=== PATIENT | female | born 1935 | race Caucasian/White ===

== ENCOUNTER 2021-01-20 05:01 | Emergency (ER) | payer OTHER ==
--- OUTSIDE RECORDS SUMMARY | 2021-01-20 05:18 | XMS REPORT | Continuity of Care Document ---
:1935 Author Organization [facility] t Address [address] [place] [address] Care Team Providers Name Role Phone Francisca Adan MD. Primary Care Physician Singer CHARLES Attending Clinician Cliff Solorzano DO Attending Clinician Mariam TORRES, A Attending Clinician Unavailable Chhaya Shaikh Attending Clinician Karen WELCH Attending Clinician Steffen CHARLES Attending Clinician [place] WELCH, K.H. Attending Clinician Karen WELCH Admitting Clinician Payers Payer Name Policy Type Policy Number Effective Date Expiration Date S ource Problems Condition Condition Condition Status Onset Resolution Last Treating Co mments Source Name Details Category Date Date Treatment Clinician Date Acute Acute Disease Active [place] hyponatrem hyponatrem 7-07 Me odi ia ia 00:00: st 00 Generalize Generalize Disease Active [place] d weakness d weakness 6-14 Me thodi 00:00: st 00 UTI UTI Disease Active [place] (urinary (urinary 6-14 Method i tract tract 00:00: st infection) infection) 00 Encephalop Encephalop Disease Active H rebeccaguy athy athy 6-05 Methodi 00:00: st 00 Hypertensi Hypertensi Disease Active H rebeccaguy ve urgency ve urgency 6-05 Me thodi 00:00: st 00 CVA CVA Disease Active [place] (cerebral (cerebral 6-04 Meth cathy vascular vascular 00:00: st accident) accident) 00 Acute-on-c Acute-on-c Disease Active H kari hronic hronic 7 Methodi kidney kidney 00:00: st injury injury 00 Accelerate Accelerate Disease Active H kari d d 02-11 Methodi hypertensi hypertensi 00:00: st on on 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 7-25 Me thodi ion ion 00:00: st 00 Essential Essential Disease Active Victor M ston hypertensi hypertensi 7-25 Me thodi on on 00:00: st 00 Pulmonary Pulmonary Disease Active Victor M ston HTN HTN 7 Methodi 00:00: st 00 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, disease, 00: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 H kari a a 7-25 Methodi following following 00:00: st surgery surgery 00 Acquired Acquired Disease Active [place] hypothyroi hypothyroi 7-25 Me thodi dism dism 00:00: st 00 Anxiety Anxiety Disease Active [place] 7 Methodi 00:00: st 00 Acute Acute Disease Active [place] blood loss blood loss 7-25 Me thodi anemia anemia 00:00: st 00 Allergies, Adverse Reactions, Alerts Allergy Allergy Status Severity Reaction(s) Onset Inactive Treating Comm ents Source Name Type Date Date Clinician Adhesive Propensi Active [place] Tape-Anuradha ty to 1-11 Methodi icones adverse 00:00: st reaction 00 s to drug tetracyc DA Active [facility] [place] 00[facility] adhesive DA Active [facility] [place] 00:[facility] Family History Family Member Diagnosis Comments Start Date Stop Date Source Natural father Alzheimer's disease Karina Morrison Natural father Heart disease Chay [employer] Social History Social Habit Start Date Stop Date Quantity Comments Source Alcohol intake 2017-01-23 2017-01-23 Current Chay Doherty thodist 00:00:00 00:00:00 non-drinker of alcohol (finding) Sex Ass[birth year] Chay Espinosa ethodist 00:00:00 00:00:00 Smoking Status Start Date Stop Date Source Never smoker Chay jacinto Medications Ordered Filled Start Stop Current Ordering Indication Dosage Frequency Signature Comments Components Source Medication Medication Date Date Medication? Clinician (SIG) Name Name clonAZEPAM Yes .5mg Q.5D Take 0.5 Victor M ston (KlonoPIN) 7-13 mg by Methodi 0.5 MG 17:22: mouth 2 st tablet 46 (two) times a day as needed for seizures. rOPINIRole Yes 2mg [id number] Take 2 mg [place] (REQUIP) 4 7-13 [id number] by mouth 3 Methodi MG tablet 17:22: 3D (three) st 46 times a day as needed. As needed atorvastati Yes 10mg QD Take 10 mg [place] n (LIPITOR) 7-13 by mouth Meth cathy 10 MG 17:22: nightly. st tablet 46 liothyronin Yes 5ug QD Take 5 mcg [place] e (CYTOMEL) 7-13 by mouth Meth cathy 5 MCG 17:22: daily. st tablet 46 baclofen Yes 20mg Q.5D Take 20 mg Victor M ston (LIORESAL) 7-13 by mouth 2 Met hodi 20 MG 17:22: (two) st tablet 46 times a day. tiZANidine Yes 4mg Q.5D Take 4 mg [place] (ZANAFLEX) 7-13 by mouth 2 Met hodi 4 MG tablet 17:22: (two) st 46 times a day as needed for muscle spasms. HYDROcodone Yes 1{tbl} [id number] Take 1 [place] -acetaminop 7-13 [id number] tablet by Methodi hen (NORCO) 17:22: 3D mouth 3 st 10-325 mg 46 (three) per tablet times a day as needed (Pain). pantoprazol Yes 40mg QD Take 40 mg [place] e 7-13 by mouth Methodi (PROTONIX) 17:22: daily st 40 MG EC 46 before tablet breakfast. melatonin 3 Yes 3mg QD Take 3 mg [place] mg tablet 7-13 by mouth Method i 17:22: nightly as st 46 needed for sleep. apixaban Yes 5mg Q.5D Take 1 [place] (ELIQUIS) 5 6-09 tablet (5 Met hodi mg tablet 00:00: mg total) st 00 by mouth 2 (two) times a day. levothyroxi Yes 88ug QD Take 88 Victor M ston ne 7-18 mcg by Methodi (SYNTHROID, 00:00: mouth st LEVOTHROID) 00 every 88 MCG morning. tablet pregabalin Yes 75mg Q.5D Take 75 mg [place] (LYRICA) 7-17 by mouth 2 Metho di 100 MG 00:00: (two) st capsule 00 times a day. Procedures This patient has no known procedures. Plan of Care Planned Activity Planned Date Details Comments Source Future Scheduled 2021-02-17 INFLUENZA VACCINE [place] [facility] Test 00:00:00 [code = INFLUENZA VACCINE] Future Scheduled 2002 65+ PNEUMOCOCCAL [place] [facility] Test 00:00:00 VACCINE (1 of 1 - PPSV23) [code = 65+ PNEUMOCOCCAL VACCINE (1 of 1 - PPSV23)] Future Scheduled 1987 SHINGLES VACCINES (#1) H kari [facility] Test 00:00:00 [code = SHINGLES VACCINES (#1)] Future Scheduled 1949 COVID-19 VACCINE (1) Victor M stoshelli [employer] Test 00:00:00 [code = COVID-19 VACCINE (1)] Encounters Start End Encounter Admission Attending Care Care Encounter Source Date/Time Date/Time Type Type Clinicians Facility Department ID 2021-01-12 2021-01-12 Emergency Singer [facility] [id number] 14:10:00 18:28:00 Jeff Fernandez [id number] [place] [id number] [place] [id number] 2021-01-05 2021-01-05 Emergency [facility] [id number] 07:59:00 09:52:00 Eve Fernandez [id number] [place] [id number] [place] [id number] 2021-01-03 2021-01-03 Transition Bladimir Becerra [id number] 00:00:00 00:00:00 of Care Kuldeep Acevedoy [id number] Dimitri [id number] 2020-12-31 2021-01-02 [facility] Tanja Mcgee [facility] [id number] 14:58:00 19:28:00 Encounter Charito Jones [id number] Hunter Bourne [id number] [place] [id number] 2020-12-24 2020-12-24 Telephone [place] [facility] [id number] 00:00:00 00:00:00 Sendsumaya Fernandez [id number] [place] [id number] [place] [id number] nal 059 Building Results This patient has no known results.
[2021-01-20 05:38] LABS: Basophils % 0.7 % (0-1.3); Hematocrit 37.5 % (36.0-45.0); Lymphocytes % 28.2 % (15.3-44.8); MPV 8.3 fL (7.6-11.3); RBC Red Blood Cell Count 4.19 M/uL (3.86-4.86)
[2021-01-20 05:45] LABS: Protime INR 1.36
[2021-01-20 06:02] LABS: ALT/SGPT 24 U/L (12-78); AST/SGOT 16 U/L (15-37); Albumin 3.8 g/dL (3.4-5.0); Alkaline Phosphatase 71 U/L (45-117); BUN Blood Urea Nitrogen 33 mg/dL (7-18); Bicarbonate 32 mmol/L (21-32); Bilirubin Direct 0.2 mg/dL (0-0.2); Bilirubin Total 0.6 mg/dL (0.2-1.0); Glucose Level 114 mg/dL (74-106); Magnesium 1.8 mg/dL (1.8-2.4); NT PRO-BNP 751 pg/mL (<450); Potassium 3.4 mmol/L (3.5-5.1); Protein, Total 7.4 g/dL (6.4-8.2); Sodium Level 135 mmol/L (136-145); Troponin (Emerg Dept Use Only) < 0.02 ng/mL (0.0-0.045)
--- NOTE | 2021-01-20 07:14 | EDPHYS ---
Physician Documentation [facility] Name: Regina Subramanian Age: 85 yrs Sex: Female : 1935 Arrival Date: 01/20/2021 Time: 05:11 Bed 5 Private MD: ED Physician Cali Cerda HPI: 01/20 05:18 This 85 yrs old Female presents to ER via EMS with complaints of Chest Pain. pkl 05:18 The patient or guardian reports chest pain that is located primarily in the substernal pkl area. Onset: just prior to arrival, 1 hour(s) ago. The pain does not radiate. Associated signs and symptoms: Pertinent positives: shortness of breath. The chest pain is described as dull. The patient has experienced similar episodes in the past, a few times. Historical: - Allergies: 05:30 Codeine; lp1 05:30 TETRACYCLINES; lp1 05:30 Silicone; lp1 05:30 Adhesives; lp1 - PMHx: 05:25 CVA; Depression; Hypertension; Hypothyroidism; bs2 - Immunization history:: Adult Immunizations up to date. - Social history:: Smoking status: Patient denies any tobacco usage or history of. ROS: 05:18 Eyes: Negative for injury, pain, redness, and discharge, ENT: Negative for injury, pkl pain, and discharge, Neck: Negative for injury, pain, and swelling. 05:18 Cardiovascular: Positive for chest pain. 05:18 Respiratory: Positive for shortness of breath. 05:18 Abdomen/GI: Negative for abdominal pain, nausea, vomiting, and diarrhea. 05:18 Back: Negative for acute changes. 05:18 : Negative for urinary symptoms. 05:18 MS/extremity: Negative for acute changes. 05:18 Skin: Negative for rash. 05:18 Neuro: Negative for altered mental status, loss of consciousness. Exam: 05:18 Head/Face: Normocephalic, atraumatic. Eyes: Pupils equal round and reactive to light, pkl extra-ocular motions intact. Lids and lashes normal. Conjunctiva and sclera are non-icteric and not injected. Cornea within normal limits. Periorbital areas with no swelling, redness, or edema. ENT: Nares patent. No nasal discharge, no septal abnormalities noted. Tympanic membranes are normal and external auditory canals are clear. Oropharynx with no redness, swelling, or masses, exudates, or evidence of obstruction, uvula midline. Mucous membranes moist. Neck: Trachea midline, no thyromegaly or masses palpated, and no cervical lymphadenopathy. Supple, full range of motion without nuchal rigidity, or vertebral point tenderness. No Meningismus. Chest/axilla: Normal chest wall appearance and motion. Nontender with no deformity. No lesions are appreciated. Cardiovascular: Regular rate and rhythm with a normal S1 and S2. No gallops, murmurs, or rubs. Normal PMI, no JVD. No pulse deficits. Respiratory: Lungs have equal breath sounds bilaterally, clear to auscultation and percussion. No rales, rhonchi or wheezes noted. No increased work of breathing, no retractions or nasal flaring. Abdomen/GI: Soft, non-tender, with normal bowel sounds. No distension or tympany. No guarding or rebound. No evidence of tenderness throughout. Back: No spinal tenderness. No costovertebral tenderness. Full range of motion. Skin: Warm, dry with normal turgor. Normal color with no rashes, no lesions, and no evidence of cellulitis. MS/ Extremity: Pulses equal, no cyanosis. Neurovascular intact. Full, normal range of motion. Neuro: Awake and alert, GCS 15, oriented to person, place, time, and situation. Cranial nerves II-XII grossly intact. Motor strength 5/5 in all extremities. Sensory grossly intact. Cerebellar exam normal. Normal gait. Vital Signs: 05:13 BP 141 / 76; Pulse 80; Resp 18; Temp 98.1(O); Pulse Ox 98% on R/A; Weight 77.11 kg (R); lp1 Height 5 ft. 4 in. (162.56 cm); Pain 4/10; 08:19 BP 126 / 53; Pulse 75; Resp 14 S; Pulse Ox 97% on R/A; jd3 05:13 Body Mass Index 29.18 (77.11 kg, 162.56 cm) lp1 MDM: 05:12 Patient medically screened. pkl 07:13 Data reviewed: vital signs, nurses notes, lab test result(s), EKG, radiologic studies, pkl plain films. 01/20 05:14 Order name: Basic Metabolic Panel bs2 01/20 05:14 Order name: CBC with Diff bs2 01/20 05:14 Order name: LFT's bs2 01/20 05:14 Order name: Magnesium; Complete Time: 06:22 bs2 01/20 05:14 Order name: NT PRO-BNP; Complete Time: 06:22 bs2 01/20 05:14 Order name: PT-INR; Complete Time: 06:22 bs2 01/20 05:14 Order name: Troponin (emerg Dept Use Only); Complete Time: 06:22 bs2 01/20 05:14 Order name: XRAY Chest (1 view); Complete Time: 19:02 bs2 01/20 05:14 Order name: EKG; Complete Time: 05:15 bs2 01/20 05:15 Order name: Basic Metabolic Panel; Complete Time: 06:22 EDMS 01/20 05:15 Order name: CBC with Automated Diff; Complete Time: 07:12 EDMS 01/20 05:15 Order name: Liver (Hepatic) Function; Complete Time: 06:22 EDMS 01/20 06:26 Order name: EKG; Complete Time: 06:27 pkl 01/20 06:26 Order name: Troponin (emerg Dept Use Only); Complete Time: 19:02 pkl 01/20 05:14 Order name: Cardiac monitoring; Complete Time: 05:23 bs2 01/20 05:14 Order name: EKG - Nurse/Tech; Complete Time: 05:23 bs2 01/20 05:14 Order name: IV Saline Lock; Complete Time: 05:23 bs2 01/20 05:14 Order name: Labs collected and sent; Complete Time: 05:23 bs2 01/20 05:14 Order name: O2 Per Protocol; Complete Time: 05:23 bs2 01/20 05:14 Order name: O2 Sat Monitoring; Complete Time: 05:23 bs2 Administered Medications: No medications were administered Disposition Summary: 01/20/21 07:14 Discharge Ordered Location: Home pkl Problem: new pkl Symptoms: have improved pkl Condition: Stable pkl Diagnosis - Chest pain pkl Followup: pkl - With: Private Physician - When: 2 - 3 days - Reason: Re-evaluation by your physician Discharge Instructions: - Discharge Summary Sheet tr6 Forms: - Medication Reconciliation Form pkl - Thank You Letter pkl - Antibiotic Education pkl - Prescription Opioid Use pkl - SBAR form tr6 Signatures: Dispatcher [employer] Cali Infante MD MD pkl Cheli Prince RN RN lp1 Tameka Gant bs2
--- NOTE | 2021-01-20 07:14 | ER ---
Nurse's Notes [facility] Name: Regina Subramanian Age: 85 yrs Sex: Female : 1935 Arrival Date: 01/20/2021 Time: 05:11 Bed 5 Private MD: Diagnosis: Chest pain Presentation: 01/20 05:11 Chief complaint: EMS states: Called for patient who had sudden onset of chest pain 1 lp1 hour ago, reports she was watching TV when episode occurred; Per EMS, half-way administered total of 0.8mg of Nitro SL; EMS administered 324 ASA PO. Coronavirus screen: Client denies travel out of the [place] in the last 14 days. At this time, the client does not indicate any symptoms associated with coronavirus-19. Ebola Screen: No symptoms or risks identified at this time. Risk Assessment: Do you want to hurt yourself or someone else? Patient reports no desire to harm self or others. Onset of symptoms was January 20, 2021. 05:11 Method Of Arrival: EMS: [facility] lp1 05:11 Acuity: HUMBLE 3 lp1 05:12 Care prior to arrival: Medication(s) given: ASA, 324mg PO. lp1 05:13 Initial Sepsis Screen: Does the patient meet any 2 criteria? No. Patient's initial lp1 sepsis screen is negative. Does the patient have a suspected source of infection? No. Patient's initial sepsis screen is negative. 05:16 Note Patient is currently being treated for cellulitis. lp1 Triage Assessment: 05:24 General: Appears in no apparent distress. uncomfortable, obese, well groomed, well bs2 developed, well nourished, Behavior is calm, cooperative, appropriate for age. Pain: Complains of pain in chest, right leg, lateral aspect of left calf, left lateral ankle, lateral aspect of left foot, left calf, left Achilles, left heel, medial aspect of left calf, left medial ankle, medial aspect of left foot, left ramos, anterior aspect of left ankle and dorsum of left foot Pain currently is 6 out of 10 on a pain scale. Cardiovascular: Reports chest pain, Edema is 2+ to left midcalf, left ankle, left foot, left toes, right midcalf, right ankle, right foot and right toes. Historical: - Allergies: 05:30 Codeine; lp1 05:30 TETRACYCLINES; lp1 05:30 Silicone; lp1 05:30 Adhesives; lp1 - PMHx: 05:25 CVA; Depression; Hypertension; Hypothyroidism; bs2 - Immunization history:: Adult Immunizations up to date. - Social history:: Smoking status: Patient denies any tobacco usage or history of. Screenin:16 Abuse screen: Denies threats or abuse. Denies injuries from another. Nutritional lp1 screening: No deficits noted. Tuberculosis screening: No symptoms or risk factors identified. Fall Risk Total Kaplan Fall Scale indicates High Risk Score (45 or more points). Fall prevention measures have been instituted. Side Rails Up X 2 Frequent Obs/Assessments Occuring As available patient and family educated on Fall Prevention Program and Strategies. Assessment: 05:15 General: Appears in no apparent distress. Behavior is calm, cooperative. Pain: lp1 Complains of pain in chest Pain currently is 4 out of 10 on a pain scale. Quality of pain is described as aching. Neuro: Level of Consciousness is awake, alert, obeys commands, Oriented to person, place, situation. Cardiovascular: Patient's skin is warm and dry. Edema pitting to left midcalf, left ankle, left toes, right midcalf, right ankle and right toes greater left leg swelling. Respiratory: Respiratory effort is even, Respiratory pattern is regular, Breath sounds are clear bilaterally. GI: Abdomen is round. : No signs and/or symptoms were reported regarding the genitourinary system. EENT: No signs and/or symptoms were reported regarding the EENT system. Derm: Skin is intact, is fragile, Skin is dry, Skin is normal. 05:25 Pain: Pain does not radiate. Pain began suddenly, 1 hour ago. bs2 07:45 Reassessment: Patient appears in no apparent distress at this time. No changes from jd3 previously documented assessment. Patient and/or family updated on plan of care and expected duration. Pain level reassessed. Patient is alert, oriented x 3, equal unlabored respirations, skin warm/dry/pink. Patient states feeling better. 08:19 Reassessment: Patient appears in no apparent distress at this time. No changes from jd3 previously documented assessment. Patient and/or family updated on plan of care and expected duration. Pain level reassessed. Patient is alert, oriented x 3, equal unlabored respirations, skin warm/dry/pink. Vital Signs: 05:13 BP 141 / 76; Pulse 80; Resp 18; Temp 98.1(O); Pulse Ox 98% on R/A; Weight 77.11 kg (R); lp1 Height 5 ft. 4 in. (162.56 cm); Pain 4/10; 08:19 BP 126 / 53; Pulse 75; Resp 14 S; Pulse Ox 97% on R/A; jd3 05:13 Body Mass Index 29.18 (77.11 kg, 162.56 cm) lp1 ED Course: 05:11 Patient arrived in ED. lp1 05:12 Cali Cerda MD is Attending Physician. pkl 05:12 Triage completed. lp1 05:12 Arm band placed on left wrist. lp1 05:12 Patient maintains SpO2 saturation greater than 95% on room air. lp1 05:16 Patient has correct armband on for positive identification. Bed in low position. Call lp1 light in reach. property assessment monitor on. Pulse ox on. NIBP on. 05:19 EKG done, by ED staff, reviewed by Cali Cerda MD. tt3 05:22 Troponin (emerg Dept Use Only) Sent. bs2 05:22 PT-INR Sent. bs2 05:23 NT PRO-BNP Sent. bs2 05:23 Magnesium Sent. bs2 05:23 LFT's Sent. bs2 05:23 CBC with Diff Sent. bs2 05:23 Basic Metabolic Panel Sent. bs2 05:23 CBC with Automated Diff Sent. bs2 05:23 Basic Metabolic Panel Sent. bs2 05:23 Liver (Hepatic) Function Sent. bs2 05:45 XRAY Chest (1 view) In Process Unspecified. EDMS 07:12 Troponin (emerg Dept Use Only) Sent. oe 08:19 Cecilio Blanco, RN is Primary Nurse. jd3 08:36 No provider procedures requiring assistance completed. IV discontinued, intact, tr6 bleeding controlled, No redness/swelling at site. Pressure dressing applied. Administered Medications: No medications were administered Outcome: 07:14 Discharge ordered by . pkl 08:37 Discharged to home via ambulance. tr6 08:37 Condition: stable 08:37 Discharge instructions given to patient, Instructed on discharge instructions, no drinking with medication, safety practices, Demonstrated understanding of instructions, follow-up care, medications. 08:43 Patient left the ED. tr6 Signatures: Dispatcher [employer] EDCali Prado MD MD pkl Pena, Laura, RN RN lp1 Jose M Marie Jonathon, RN RN jd3 Darian Ely tt3 Whitney Barker RN RN tr6 Tameka Gant bs2
--- NOTE | 2021-01-20 08:35 | RAD REPORT ---
EXAM DESCRIPTION: RAD - Chest Single View - 01/20/2021 5:45 am CLINICAL HISTORY: CHEST PAIN COMPARISON: March 2017 TECHNIQUE: AP portable chest image was obtained 01/20/2021 5:45 am . FINDINGS: Lungs are clear. Interstitial pattern is slightly accentuated due to a lower lung volume. Heart and vasculature are normal. No measurable pleural effusion and no pneumothorax. No acute bony a bnormality seen. No acute aortic findings suspected. Sternotomy wires are in place. IMPRESSION: No acute cardiopulmonary process. No significant change from comparison study.
[2021-01-20 08:49] VITALS: TEMP 98.1
[2021-01-20 08:51] VITALS: BP 126/53; O2SAT 97
--- NOTE | 2021-01-21 10:32 | EKG ---
Test Date: 2021-01-20 Test Time: 07:03:25 [place] Supervisor: MONROE MEASUREMENT RESULTS: Intervals: Rate: 76 AK: 186 QRSD: 76 QT: 412 QTc: 463 [place]: P: 42 AK: 186 QRS: -8 T: 63 INTERPRETIVE STATEMENTS: Normal sinus rhythm Moderate voltage criteria for LVH, may be normal variant Borderline ECG Compared to ECG 01/20/2021 05:11:05 No significant changes Electronically Signed On 01-21-21 10:30:17 CDT by Richard Gonzalez
--- NOTE | 2021-01-21 10:32 | EKG ---
Test Date: 2021-01-20 Test Time: 05:11:05 Curriculum Development Specialist: TLT MEASUREMENT RESULTS: Intervals: Rate: 81 MO: 172 QRSD: 78 QT: 406 QTc: 471 [place]: P: 38 MO: 172 QRS: -3 T: 64 INTERPRETIVE STATEMENTS: Normal sinus rhythm Minimal voltage criteria for LVH, may be normal variant Borderline ECG Compared to ECG 04/18/2017 19:23:15 Left ventricular hypertrophy now present Electronically Signed On 01-21-21 10:30:20 CDT by Richard Gonzalez
== END 2021-01-20 08:43 | disposition home or self-care (01) ==
LOC: ER 05:01
DX: R07.9 Chest pain, unspecified (principal); I10 Essential (primary) hypertension; Z88.1 Allergy status to other antibiotic agents; Z88.5 Allergy status to narcotic agent; Z88.8 Allergy status to other drugs, medicaments and biological substances; Z91.048 Other nonmedicinal substance allergy status
CPT/HCPCS: 36415; 71045; 80048; 80076; 83735; 83880; 84484; 85025; 85610; 93005; 99285

== ENCOUNTER 2021-02-28 07:08 | Emergency (ER) | payer OTHER ==
--- OUTSIDE RECORDS SUMMARY | 2021-02-28 07:12 | XMS REPORT | Continuity of Care Document ---
:1935 Author Organization [facility] t Address [address] [place] [address] Care Team Providers Name Role Phone Francisca [...] Treatment Clinician Date Acute Acute Disease Active Methodi hyponatrem hyponatrem 01-23 ia ia 00:00: Hospita 00 l Generalize Generalize Disease Active M ethodi d weakness d weakness 12-31 00:00: Hospita 00 l UTI UTI Disease Active Methodi (urinary (urinary 6-14 st tract tract 00:00: Hospita infection) infection) 00 l Encephalop Encephalop Disease Active M ethodi athy athy 12-22 00:00: Hospita 00 l Hypertensi Hypertensi Disease Active M ethodi ve urgency ve urgency 12-22 00:00: Hospita 00 l CVA CVA Disease Active Methodi (cerebral (cerebral 12-21 vascular vascular 00:00: Hospit a accident) accident) 00 l Acute-on-c Acute-on-c Disease Active M ethodi hronic hronic 02-12 kidney kidney 00:00: Hospita injury injury 00 l Accelerate Accelerate Disease Active M ethodi d d 02-11 hypertensi hypertensi 00:00: Ho spita on on 00 l Pulmonary Pulmonary Disease Active Met hodi HTN HTN 02-10 00:00: Hospita 00 l Chronic Chronic Disease Active Methodi kidney kidney 02-10 disease, disease, 00:00: Hospit a stage II stage II 00 l (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 02-10 following following 00:00: Hosp cecelia surgery surgery 00 l Acquired Acquired Disease Active Metho di hypothyroi hypothyroi 02-10 dism dism 00:00: Hospita 00 l Anxiety Anxiety Disease Active Methodi 02-10 00:00: Hospita 00 l Acute Acute Disease Active Methodi blood loss blood loss 02-10 anemia anemia 00:00: Hospita 00 l Mitral Mitral Disease Active Methodi regurgitat regurgitat 02-10 ion ion 00:00: Hospita 00 l Essential Essential Disease Active Met hodi hypertensi hypertensi 02-10 on on 00:00: Hospita 00 l Allergies, Adverse Reactions, Alerts Allergy Allergy Status Severity Reaction(s) Onset Inactive Treating Comm ents Source Name Type Date Date Clinician Adhesive Propensi Active Method i Tape-Anuradha ty to 1-11 st icones adverse 00:00: Hospita reaction 00 l s to drug tetracyc DA Active SV [facility] line 02-23 00:00: Orthope 00 dic Hospita 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 [facility] 02-23 [place] 00:00: Orthope 00 dic Hospita l Family History Family Member Diagnosis Comments Start Date Stop Date Source Natural father Alzheimer's disease [facility] Natural father Heart disease [facility] Social History Social Habit Start Date Stop Date Quantity Comments Source Alcohol intake 2017-01-23 2017-01-23 Current [facility] 00:00:00 00:00:00 non-drinker of Hospital alcohol (finding) Sex Ass[birth year] At [birth year] [facility] 00:[facility]:00 [facility] Smoking Status Start Date Stop Date Source Never smoker [facility] Medications Ordered Filled Start Stop Current Ordering Indication Dosage Frequency Signature Comments Components Source Medication Medication Date Date Medication? Clinician (SIG) Name Name clonAZEPAM Yes .5mg Q.5D Take 0.5 Met hodi (KlonoPIN) 7-[address] 0.5 MG 22:22: mouth 2 Hospita tablet 46 (two) l times a day as needed for seizures. rOPINIRole Yes 2mg [id number] Take 2 mg Methodi (REQUIP) 4 7-13 [id number] [address] mouth [address] MG tablet 22:22: 3D (three) Hospi ta 46 times a l day as needed. As needed atorvastati Yes 10mg QD Take 10 mg Methodi n (LIPITOR) 7-[address] 10 MG 22:22: nightly. Hospita tablet 46 l liothyronin Yes 5ug QD Take 5 mcg Methodi e (CYTOMEL) 7-[address] 5 MCG 22:22: daily. Hospita tablet 46 l baclofen Yes 20mg Q.5D Take 20 mg Met hodi (LIORESAL) 7-[address] 20 MG 22:22: (two) Hospita tablet 46 times a l day. tiZANidine Yes 4mg Q.5D Take 4 mg Me thodi (ZANAFLEX) 7-[address] 4 MG tablet 22:22: (two) Hospi ta 46 times a l day as needed for muscle spasms. HYDROcodone Yes 1{tbl} [id number] Take 1 Methodi -acetaminop 7-[id number] hen (NORCO) 22:22: 3D mouth 3 Hos mindy 10-325 mg 46 (three) l per tablet times a day as needed (Pain). pantoprazol Yes 40mg QD Take 40 mg Methodi e 7-[address] (PROTONIX) 22:22: daily Hospit a 40 MG EC 46 before l tablet breakfast. melatonin 3 Yes 3mg QD Take 3 mg M ethodi mg tablet 7-[address] 22:22: nightly as Hospita 46 needed for l sleep. apixaban Yes 5mg Q.5D Take 1 Methodi (ELIQUIS) 5 6-09 tablet (5 st mg tablet 00:00: mg total) Hos mindy 00 by mouth 2 l (two) times a day. levothyroxi Yes 88ug QD Take 88 Met hodi ne 7-[address] (SYNTHROID, 00:00: mouth Hospi ta LEVOTHROID) 00 every l 88 MCG morning. tablet pregabalin Yes 75mg Q.5D Take 75 mg M ethodi (LYRICA) 7-[address] 100 MG 00:00: (two) Hospita capsule 00 times a l day. Procedures This patient has no known procedures. Plan of Care Planned Activity Planned Date Details Comments Source Future Scheduled Test COVID-19 VACCINE (1) [facility] [code = COVID-19 VACCINE (1)] Future Scheduled Test SHINGLES VACCINES (#1) [facility] [code = SHINGLES VACCINES (#1)] Future Scheduled Test 65+ PNEUMOCOCCAL [facility] VACCINE (1 of 1 - PPSV23) [code = 65+ PNEUMOCOCCAL VACCINE (1 of 1 - PPSV23)] Future Scheduled Test INFLUENZA VACCINE [code [facility] = INFLUENZA VACCINE] Encounters Start End Encounter Admission Attending Care Care Encounter Source Date/Time Date/Time Type Type Clinicians Facility Department ID 2021-01-12 2021-01-12 Emergency CORBY Griffiths [id number] 14:10:00 18:28:00 Jeff Fernandez [id number] [place] [id number] [place] [id number] 2021-01-05 2021-01-05 Emergency [facility] [id number] 07:59:00 09:52:00 Eve Coronado Jim [id number] [place] [id number] [place] [id number] 2021-01-03 2021-01-03 Transition Bladimir Becerra [id number] 00:00:00 00:00:00 of Care Kuldeep Pardo [id number] [place] [id number] 2020-12-31 2021-01-02 [facility] Tanja Mcgee [facility] [id number] 14:58:00 19:28:00 Encounter AdrianohCharito strickland [id number] Hunter Bourne [id number] [place] [id number] 2020-12-24 2020-12-24 Telephone [place] [facility] [id number] 00:00:00 00:00:00 Sendil TanjaAbdiKarinaAbdi Fernandez [id number] [place] [id number] [facility] [id number] [facility] 059 Building Results Test Description Test Time Test Comments Results Result Comments Source PLATELET AGGREGATION: EXTENDED PANEL 2016-12-29 12:39:00 Test Item Value Reference Range Interpretation Comme nts STRONG ADP RESULT(BEAKER) (test code = 89 % 70-94 2136) WEAK ADP RESULT(BEAKER) (test code = 81 % 60-91 2134) ARACHADONIC ACID RESULT(BEAKER) (test 35 % 63-89 L code = 8) COLLAGEN RESULT(BEAKER) (test code = 79 % 65-89 2138) EPINEPHRINE RESULT (BEAKER) (test code 66 % 48-88 = 2139) STRONG RISTOCETIN 1.5 MG/DL (BEAKER) 44 % 75-100 L (test code = 2141) WEAK RISTOCETIN 0.5 MG/DL (BEAKER) 5 % 1-10 (test code = 2142) PLATELET AGG COMP INTERPRETATION Results with arachidonic acid (BEAKER) (test code = 2407) decreased. PLATELET AGG COMP INTERPRETATION Results with strong Ristocetin (BEAKER) (test code = 393742) decreased. [id number] (BEAKER) (test Caio Newton MD (electronic code = 2612) signature) PLATELET COUNT AGG (BEAKER) (test code 227 K/CU MM 150-430 = 8215)
[2021-02-28] MEDS ORDERED: FENTANYL CITR 100 MCG/2 ML ONE (07:48)
[2021-02-28] MEDS ORDERED: propofoL 200 MG/20 ML VIAL IV ONE (07:49)
[2021-02-28 08:44] LABS: Absolute Lymphocytes (CBC) 0.8 K/uL (0.7-4.9); Basophils % 0.4 % (0-1.3); Hematocrit 32.4 % (36.0-45.0); Lymphocytes % 8.8 % (15.3-44.8); MPV 7.7 fL (7.6-11.3); RBC Red Blood Cell Count 3.73 M/uL (3.86-4.86)
--- NOTE | 2021-02-28 09:04 | RAD REPORT ---
EXAM DESCRIPTION: CT - Head C Spine Cap Wo Con - 02/28/2021 8:43 am CLINICAL HISTORY: Trauma, head and neck injury. Chest, abdomen and pelvis pain. may have been dropped from standing position;Pain COMPARISON: Abdomen Pelvis W Contrast dated 04/13/2017; Head Brain Wo Cont dated 04/13/2017 TECHNIQUE: CT head without contrast. CT cervical spine without contrast with coronal and sagittal reformatted images. CT chest, abdomen and pelvis without contrast with coronal and sagittal reformatted images of the spi ne. All CT scans are performed using dose optimization technique as appropriate and may include automated exposure control or mA/KV adjustment according to patient size. FINDINGS: CT HEAD WITHOUT CONTRAST: No intracranial hemorrhage, hydrocephalus or extra-axial fluid collection. No areas of brain edema o r midline shift. White matter hypoattenuation in the right frontal lobe favored chronic. The paranasal sinuses and mastoids are clear. The calvarium is intact. CT CERVICAL SPINE WITHOUT CONTRAST: No fracture or traumatic malalignment. The prevertebral soft tissues are normal in thickness.Advance d multilevel cervical spondylosis with varying degrees of neural foraminal narrowing. There is retrol isthesis of C3 on C4 anterolisthesis of C4 on C5 which is favored chronic. CT CHEST, ABDOMEN, PELVIS WITHOUT CONTRAST: NOTE: Lack of contrast is a significant limitation in the assessment of trauma related findings. Spec ifically, solid organ, vascular and bowel evaluation is significantly limited. The lungs are clear.No pneumothorax or pericardial/pleural fluid. Dependent atelectasis. No evidence of intra-abdominal visceral injury, free fluid or free air is seen within the above detai led limitations. The bladder is decompressed via Mccormack catheter. No concerning pelvic findings. Fusion hardware in the lower spine. Probably remote T11 compression fracture. Remote sternal fracture with changes of sternotomy. IMPRESSION: 1. No acute intracranial abnormality. No skull fracture identified. 2. No fracture or traumatic malalignment of the cervical spine. 3. No evidence of significant trauma to the chest, abdomen, or pelvis.
--- NOTE | 2021-02-28 09:46 | RAD REPORT ---
EXAM DESCRIPTION: RAD - Knee Left 2 View - 02/28/2021 9:16 am CLINICAL HISTORY: PAIN COMPARISON: No comparisons FINDINGS: Obliquely oriented fracture of the left proximal tibial diaphysis. There is approximately 1/3 shaft width of displacement which is both lateral and anterior. There is also a minimally displac ed fracture of the proximal fibular diaphysis. IMPRESSION: Proximal tibial and fibular diaphyseal fractures.
--- NOTE | 2021-02-28 09:47 | RAD REPORT ---
EXAM DESCRIPTION: RAD - Tib Fib Left - 02/28/2021 9:41 am CLINICAL HISTORY: Pain;Deformity COMPARISON: No comparisons FINDINGS: Proximal tibial diaphyseal fracture with approximate 1/3 shaft width of displacement. Prox imal fibular fracture which is minimally displaced. There is slight overriding of the tibial fracture . Plate and screw fixation at the distal tibia. Partial fibular resection. Osteopenia. IMPRESSION: Proximal tibial and fibular diaphyseal fractures.
--- NOTE | 2021-02-28 09:47 | RAD REPORT ---
EXAM DESCRIPTION: RAD - Femur Left - 02/28/2021 9:41 am CLINICAL HISTORY: PAIN COMPARISON: No comparisons FINDINGS: No left hip fracture or dislocation. IMPRESSION: No left hip fracture or dislocation.
--- NOTE | 2021-02-28 09:57 | EDPHYS ---
Physician Documentation [facility] Name: Regina Subramanian Age: 85 yrs Sex: Female : 1935 Arrival Date: 02/28/2021 Time: 07:29 Bed 2 Private MD: ED Physician Yung Ramirez HPI: 02/28 07:39 This 85 yrs old Female presents to ER via EMS with complaints of Fall Injury. kdr 07:39 Details of fall: The patient fell from an upright position, while standing. Onset: The kdr symptoms/episode began/occurred suddenly, just prior to arrival. Associated injuries: The patient sustained left leg. Severity of symptoms: At their worst the symptoms were severe, incapacitating. The patient has not experienced similar symptoms in the past. It is unknown whether or not the patient has recently seen a physician. The patient was reportedly being moved from a chair to the toilet when she may have been dropped to the ground. During the fall her left leg folded back under her right leg. She presents with obvious deformity of the proximal tibia tibia. She denies LOC or head injury. There are no other apparent injuries... Historical: - Allergies: 07:40 TETRACYCLINES; bp - Home Meds: 07:40 amiodarone 100 mg oral tab 1 tab 2 times per day [Active]; amlodipine 5 mg tab 1 tab bp once daily [Active]; atorvastatin 10 mg oral tab 1 tab once daily [Active]; bupropion HCl 150 mg Oral SR12 1 tab 2 times per day [Active]; duloxetine 60 mg oral cpDR 1 cap once daily [Active]; Eliquis 2.5 mg oral tab 1 tab 2 times per day [Active]; Lasix 40 mg Oral tab 1 tab 2 times per day [Active]; hydralazine 10 mg Oral tab 1 tab 4 times per day [Active]; hydrocodone-acetaminophen 5-325 mg Oral tab 1 tab every 6 hours [Active]; levothyroxine 88 mcg cap 1 cap once daily [Active]; liothyronine 5 mcg oral tab 1 tab once daily [Active]; nitroglycerin 0.4 mg SL subl 1 tab every 5 minutes [Active]; ondansetron HCl 4 mg Oral tab 1 tab every 8 hours [Active]; pantoprazole 40 mg oral TbEC 1 tab once daily [Active]; potassium chloride 10 mEq Oral cpER 1 cap once daily [Active]; ropinirole 2 mg oral tab 1 tab 3 times per day [Active]; tizanidine 4 mg oral cap 1 cap every 6 hours [Active]; trazodone 50 mg Oral tab 1 tab nightly [Active]; Trintellix 10 mg oral tab 1 tab once daily [Active]; - PMHx: 07:40 CVA; Depression; Hypertension; Hypothyroidism; Diabetes mellitus; Atrial fibrillation; bp - Immunization history: Last tetanus immunization: - up to date. - Social history:: Smoking status: Patient denies any tobacco usage or history of. ROS: 08:01 Constitutional: Negative for fever, chills, and weight loss, Eyes: Negative for injury, kdr pain, redness, and discharge, ENT: Negative for injury, pain, and discharge, Neck: Negative for injury, pain, and swelling, Cardiovascular: Negative for chest pain, palpitations, and edema, Respiratory: Negative for shortness of breath, cough, wheezing, and pleuritic chest pain, Abdomen/GI: Negative for abdominal pain, nausea, vomiting, diarrhea, and constipation, Back: Negative for injury and pain, : Negative for injury, bleeding, discharge, and swelling, Skin: Negative for injury, rash, and discoloration, Neuro: Negative for headache, weakness, numbness, tingling, and seizure activity. Psych: Negative for depression, anxiety, suicide ideation, homicidal ideation, and hallucinations, Allergy/Immunology: Negative for hives, rash, and allergies, Endocrine: Negative for neck swelling, polydipsia, polyuria, polyphagia, and marked weight changes, Hematologic/Lymphatic: Negative for swollen nodes, abnormal bleeding, and unusual bruising. 08:01 MS/extremity: Positive for decreased range of motion, deformity, laceration, pain, swelling, of the lateral aspect of left calf, left lateral ankle, left calf, left Achilles, medial aspect of left calf, left medial ankle, left ramos and anterior aspect of left ankle. Exam: 08:01 Constitutional: This is a well developed, well nourished patient who is awake, alert, kdr and in no acute distress. Head/Face: Normocephalic, atraumatic. Eyes: Pupils equal round and reactive to light, extra-ocular motions intact. Lids and lashes normal. Conjunctiva and sclera are non-icteric and not injected. Cornea within normal limits. Periorbital areas with no swelling, redness, or edema. Neck: Trachea midline, no thyromegaly or masses palpated, and no cervical lymphadenopathy. Supple, full range of motion without nuchal rigidity, or vertebral point tenderness. No Meningismus. Chest/axilla: Normal chest wall appearance and motion. Nontender with no deformity. No lesions are appreciated. Cardiovascular: Regular rate and rhythm with a normal S1 and S2. No gallops, murmurs, or rubs. Normal PMI, no JVD. No pulse deficits. Respiratory: Lungs have equal breath sounds bilaterally, clear to auscultation and percussion. No rales, rhonchi or wheezes noted. No increased work of breathing, no retractions or nasal flaring. Abdomen/GI: Soft, non-tender, with normal bowel sounds. No distension or tympany. No guarding or rebound. No evidence of tenderness throughout. 08:01 Musculoskeletal/extremity: Extremities: grossly normal except: noted in the lateral aspect of left calf, left calf, medial aspect of left calf and left ramos: decreased ROM, deformity, On initial presentation, the left lower extremity is folded up under the right thigh. Her foot is rotated 180 degrees and pointing cephalid. Due to extensive bilateral lower extremity edema, pedal and posterior tibial pulses are not appreciated. Her skin however is pink with good capillary refill of the foot on the left lower extremity.. Vital Signs: 07:35 BP 130 / 72; Pulse 83; Resp 17; Temp 97.9; Pulse Ox 100% on R/A; bp 08:30 BP 107 / 56; Pulse 70; Resp 16; Pulse Ox 99% ; bp 09:30 BP 109 / 64; Pulse 75; Resp 12; Pulse Ox 100% ; bp 10:30 BP 119 / 50; Pulse 75; Resp 11; Pulse Ox 100% ; bp 11:29 BP 116 / 64; Pulse 76; Resp 12; Pulse Ox 100% ; bp Rosalinda Coma Score: 08:14 Eye Response: spontaneous(4). Verbal Response: confused(4). Motor Response: localizes bp pain(5). Total: 13. Trauma Score (Adult): 07:35 Eye Response: spontaneous(1); Verbal Response: oriented(1); Motor Response: obeys bp commands(2); Systolic BP: > 89 mm Hg(4); Respiratory Rate: 10 to 29 per min(4); Logan Score: 15; Trauma Score: 12 Procedures: 08:01 Splinting: Splint applied to right leg using The patient was given both a stirrup and kdr posterior long-leg splint. This was preceded by dressing of a 6 cm mid tibial laceration.. applied by myself. Examined by me, post splint application: neurovascular intact, brisk capillary refill noted, Patient tolerated well. Moderate sedation: Pre-procedure assessment: ASA physical classification: III - organic disease with definite functional impairment, Airway assessment: able to hyperextend neck, Mallampati classification of tongue size: II - faucial pillars and soft palate can be visualized, but uvula is masked by the base of the tongue, Monitoring during procedure: quality assurance monitor chassis, Medications employed: Fentanyl, 50 mcg(s), Propofol, Post-procedure assessment: the patient is mildly sedated, Respiratory status: even and unlabored, a reversal agent was not used, The patient tolerated the reduction of her fracture well. Her saturations remained above 88% and most option was 95 to 100%.. MDM: 09:56 Patient medically screened. kdr 09:56 Differential diagnosis: closed head injury, contusion, fracture. Data reviewed: vital kdr signs, nurses notes, lab test result(s), radiologic studies. Counseling: I had a detailed discussion with the patient and/or guardian regarding: the historical points, exam findings, and any diagnostic results supporting the discharge/admit diagnosis, lab results, radiology results. 02/28 07:33 Order name: Basic Metabolic Panel kdr 02/28 07:33 Order name: CBC with Diff; Complete Time: 09:47 kdr 02/28 07:33 Order name: Type And Screen kdr 02/28 07:33 Order name: CT Traumagram (Head C Spine CAP wo con); Complete Time: 09:47 kdr 02/28 07:33 Order name: Femur Left XRAY; Complete Time: 09:53 kdr 02/28 11:40 Order name: ABO/RH no charge EDMS 02/28 07:33 Order name: Labs collected and sent; Complete Time: 08:43 kdr 02/28 07:33 Order name: Tib Fib Left XRAY; Complete Time: 09:53 kdr 02/28 09:15 Order name: Knee Left 2 View; Complete Time: 09:53 EDMS Administered Medications: 07:25 Drug: fentaNYL (PF) 50 mcg Route: IVP; Site: right forearm; bp 11:30 Follow up: Response: Pain is decreased bp 07:45 Drug: Propofol 160 mg Route: IVP; Site: right forearm; bp 11:30 Follow up: Response: Pain is decreased bp 10:00 Drug: Ancef (cefazolin) 1 grams Route: IVPB; Site: right forearm; bp 11:30 Follow up: IV Status: Completed infusion; IV Intake: 50ml bp Disposition Summary: 02/28/21 09:56 Transfer Ordered Reason: Higher level of care kdr Condition: Fair kdr Problem: new kdr Symptoms: have improved kdr Transfer Location: [facility](02/28/21 10:59) kdr Accepting Physician: Dr. Haritha Doe(02/28/21 12:18) bp Diagnosis - Proximal left tibia and fibula fracture kdr Forms: - Medication Reconciliation Form kdr - SBAR form kdr Signatures: Dispatcher [employer] EDMS Yung Ramirez MD MD kdr Kiel Wei, RN RN bp Corrections: (The following items were deleted from the chart) 09:15 07:35 Knee Left 3 View+RAD.RAD.BRZ ordered. EDMS EDMS 10:40 07:40 Allergies: Adhesives; bp bp 10:40 07:40 Allergies: Codeine; bp bp 10:40 07:40 Allergies: Silicone; bp bp 10:40 07:40 Allergies: Eliquis; bp bp 10:59 09:56 f kdr kdr 10:59 09:56 [facility] kdr kdr 12:18 10:59 Dr. Haritha Doe kdr bp
--- NOTE | 2021-02-28 09:57 | ER ---
Nurse's Notes [facility] Name: Regina Subramanian Age: 85 yrs Sex: Female : 1935 Arrival Date: 02/28/2021 Time: 07:29 Bed 2 Private MD: Diagnosis: Proximal left tibia and fibula fracture Presentation: 02/28 07:00 Chief complaint: EMS states: FALL WHILE BEING ASSISTED TO BATHROOM AT [facility]. bp Care prior to arrival: Medication(s) given: 75MCG FENTANYL IV initiated. 20 GA, in the right forearm. Mechanism of Injury: Fall from standing position. Trauma event details: Injury occurred in the [facility], Injury occurred: [facility] Injury occurred: February 28, 2021 Injury occurred at: 06:00. 07:00 Acuity: HUMBLE 2 bp 07:00 Method Of Arrival: EMS: [facility] bp 07:30 Coronavirus screen: Client reports previous positive COVID test result. Ebola Screen: bp No symptoms or risks identified at this time. Initial Sepsis Screen: Does the patient meet any 2 criteria? No. Patient's initial sepsis screen is negative. Does the patient have a suspected source of infection? No. Patient's initial sepsis screen is negative. Risk Assessment: Do you want to hurt yourself or someone else? Patient reports no desire to harm self or others. Onset of symptoms was February 28, 2021 at 06:30. Trauma Activation: Alert Physician: ED Physician; Name: ; Notified At: ; Arrived At: Physician: General Surgeon; Name: ; Notified At: ; Arrived At: Physician: Radiology; Name: ; Notified At: ; Arrived At: Physician: Respiratory; Name: ; Notified At: ; Arrived At: Physician: Lab; Name: ; Notified At: ; Arrived At: Historical: - Allergies: 07:40 TETRACYCLINES; bp - Home Meds: 07:40 amiodarone 100 mg oral tab 1 tab 2 times per day [Active]; amlodipine 5 mg tab 1 tab bp once daily [Active]; atorvastatin 10 mg oral tab 1 tab once daily [Active]; bupropion HCl 150 mg Oral SR12 1 tab 2 times per day [Active]; duloxetine 60 mg oral cpDR 1 cap once daily [Active]; Eliquis 2.5 mg oral tab 1 tab 2 times per day [Active]; Lasix 40 mg Oral tab 1 tab 2 times per day [Active]; hydralazine 10 mg Oral tab 1 tab 4 times per day [Active]; hydrocodone-acetaminophen 5-325 mg Oral tab 1 tab every 6 hours [Active]; levothyroxine 88 mcg cap 1 cap once daily [Active]; liothyronine 5 mcg oral tab 1 tab once daily [Active]; nitroglycerin 0.4 mg SL subl 1 tab every 5 minutes [Active]; ondansetron HCl 4 mg Oral tab 1 tab every 8 hours [Active]; pantoprazole 40 mg oral TbEC 1 tab once daily [Active]; potassium chloride 10 mEq Oral cpER 1 cap once daily [Active]; ropinirole 2 mg oral tab 1 tab 3 times per day [Active]; tizanidine 4 mg oral cap 1 cap every 6 hours [Active]; trazodone 50 mg Oral tab 1 tab nightly [Active]; Trintellix 10 mg oral tab 1 tab once daily [Active]; - PMHx: 07:40 CVA; Depression; Hypertension; Hypothyroidism; Diabetes mellitus; Atrial fibrillation; bp - Immunization history: Last tetanus immunization: - up to date. - Social history:: Smoking status: Patient denies any tobacco usage or history of. Screenin:35 Abuse screen: Denies threats or abuse. Denies injuries from another. Tuberculosis bp screening: No symptoms or risk factors identified. 12:00 Nutritional screening: No deficits noted. Fall Risk Fall in past 12 months (25 points). bp Secondary diagnosis (15 points) dementia, CVA, IV access (20 points). Ambulatory Aid- Crutches/Cane/Walker (15 pts). Gait- Weak (10 pts.). Mental Status- Overestimates/Forgets Limitations (15 pts.). Total Kaplan Fall Scale indicates High Risk Score (45 or more points). Fall prevention measures have been instituted. Side Rails Up X 2 Placed Close to Nursing Station Frequent Obs/Assessments Occuring As available patient and family educated on Fall Prevention Program and Strategies. Primary Survey: 07:36 NO uncontrolled hemorrhage observed. A: The patient is alert. Airway: patent, Oxygen bp via nasal cannula at 4 liters per minute. Breathing/Chest: Respiratory pattern: regular, Respiratory effort: spontaneous, unlabored. Circulation: Cardiac rhythm: sinus rhythm. Disability Alert. Exposure/Environment: All clothing and personal items were removed. Forensic evidence collection is not deemed to be indicated at this time. Items placed in patient belonging bag. There is no evidence of uncontrolled external bleeding. Obvious injury(ies) are noted at this time: LEFT LOWER LEG GROSSLY DEFORMED, LAC TO LEFT ANTERIOR CALF, SKIN TEAR TO LEFT GROIN A warming method has been applied: A warm blanket has been provided to the patient. 08:14 Reassessment Airway Airway Patent Oxygen Nasal cannula Breathing/Chest Respiratory bp pattern Regular Respiratory effort Spontaneous Unlabored Circulation Pulses Palpable Disability Alert. Assessment: 07:36 General: Appears distressed, uncomfortable, obese, Behavior is cooperative, anxious. bp Pain: Complains of pain in left leg. Neuro: Level of Consciousness is awake, obeys commands, confused, Oriented to person, place. EENT: No deficits noted. Cardiovascular: No deficits noted. Respiratory: No deficits noted. GI: No signs and/or symptoms were reported involving the gastrointestinal system. Abdomen is obese, Abd is non tender X 4 quads. : No signs and/or symptoms were reported regarding the genitourinary system. Derm: No deficits noted. Musculoskeletal: Bony deformity noted of left leg. 10:21 Reassessment: Spoke with Maritza with [facility] transfer center who states that they ss may be able to find a bed for patient an will call back shortly. 10:38 Reassessment: Transfer cancelled with [facility] as [facility] has given administrative approval and has capacity to accept patient. 11:27 Reassessment: REPORT TO MARIANN TORRES AT [facility]. TRANSFER PENDING. bp 12:00 Reassessment: EMS AT B/S FOR TRANSPORT. bp Vital Signs: 07:35 BP 130 / 72; Pulse 83; Resp 17; Temp 97.9; Pulse Ox 100% on R/A; bp 08:30 BP 107 / 56; Pulse 70; Resp 16; Pulse Ox 99% ; bp 09:30 BP 109 / 64; Pulse 75; Resp 12; Pulse Ox 100% ; bp 10:30 BP 119 / 50; Pulse 75; Resp 11; Pulse Ox 100% ; bp 11:29 BP 116 / 64; Pulse 76; Resp 12; Pulse Ox 100% ; bp [place] Coma Score: 08:14 Eye Response: spontaneous(4). Verbal Response: confused(4). Motor Response: localizes bp pain(5). Total: 13. Trauma Score (Adult): 07:35 Eye Response: spontaneous(1); Verbal Response: oriented(1); Motor Response: obeys bp commands(2); Systolic BP: > 89 mm Hg(4); Respiratory Rate: 10 to 29 per min(4); Rosalinda Score: 15; Trauma Score: 12 ED Course: 07:29 Patient arrived in ED. bp 07:30 Arm band placed on. bp 07:31 Yung Ramirez MD is Attending Physician. kdr 07:31 Triage completed. bp 07:35 Kiel Wei, MELISSA is Primary Nurse. bp 07:35 Patient has correct armband on for positive identification. Bed in low position. Call bp light in reach. Side rails up X2. 07:35 Oxygen administration via nasal cannula \T\ 2L/min. Thermoregulation: warm blanket given bp to patient. 07:35 Maintain EMS IV. Dressing intact. Good blood return noted. Site clean \T\ dry. Gauge \T\ bp site: 20 GAUGE R FA. 07:50 Mccormack cath inserted, using sterile technique, 18 Fr., by ne, balloon inflated, to bp gravity drainage. Orthoglass splint: Posterior long leg splint applied on left leg. stirrup splint applied on left leg. 08:43 CT Traumagram (Head C Spine CAP wo con) In Process Unspecified. EDMS 08:43 CT Traumagram (Head C Spine CAP wo con) Sent. bp 09:16 Femur Left XRAY In Process Unspecified. EDMS 09:16 Tib Fib Left XRAY In Process Unspecified. EDMS 09:16 Knee Left 2 View In Process Unspecified. EDMS 10:01 Transfer initiated with [facility] transfer center; transfer center denies em1 due to lack of appropriate bed space, no covid beds. 12:00 No provider procedures requiring assistance completed. Patient transferred, IV remains bp in place. Administered Medications: 07:25 Drug: fentaNYL (PF) 50 mcg Route: IVP; Site: right forearm; bp 11:30 Follow up: Response: Pain is decreased bp 07:45 Drug: Propofol 160 mg Route: IVP; Site: right forearm; bp 11:30 Follow up: Response: Pain is decreased bp 10:00 Drug: Ancef (cefazolin) 1 grams Route: IVPB; Site: right forearm; bp 11:30 Follow up: IV Status: Completed infusion; IV Intake: 50ml bp Intake: 07:35 PO: 0ml; Total: 0ml. bp 11:30 IV: 50ml; Total: 50ml. bp Output: 07:35 Urine: 0ml; Total: 0ml. bp Outcome: 09:56 ER care complete, transfer ordered by . kdr 12:00 Transferred by ground EMS to [facility]. bp 12:00 Condition: stable 12:00 Discharge instructions given to patient, Instructed on the need for transfer. 12:17 Patient's length of stay was extended due to staffing issues within the emergency bp department. 12:18 Patient left the ED. bp Signatures: Dispatcher [employer] EDMS Yung Ramirez MD MD kdr Martinez, Eric em1 Mariah Bishop RN RN Kiel Wei RN RN bp Corrections: (The following items were deleted from the chart) 08:34 08:21 Maintain EMS IV. Dressing intact. Good blood return noted. Site clean \T\ dry. bp Gauge \T\ site: 20 GAUGE R FA. bp 10:40 07:40 Allergies: Adhesives; bp bp 10:40 07:40 Allergies: Codeine; bp bp 10:40 07:40 Allergies: Silicone; bp bp 10:40 07:40 Allergies: Eliquis; bp bp
[2021-02-28] MEDS ORDERED: CEFAZOLIN/SWI 1gm 1 GM/10 ML SYR ONE (11:47)
[2021-02-28] MEDS ORDERED: NA CHLORIDE 0.9% 50 ML ONE (11:47)
[2021-02-28 12:23] VITALS: TEMP 97.9
[2021-02-28 12:30] VITALS: O2SAT 100
[2021-02-28 12:33] VITALS: BP 116/64
== END 2021-02-28 12:18 | disposition short-term general hospital (02) ==
LOC: ER 07:08
PROC: 0QSKXZZ Reposition Left Fibula, External Approach (ICD-10-PCS; principal; 2021-02-28)
PROC: 0QSHXZZ Reposition Left Tibia, External Approach (ICD-10-PCS; 2021-02-28)
DX: S82.102A Unspecified fracture of upper end of left tibia, initial encounter for closed fracture (principal); S82.832A Other fracture of upper and lower end of left fibula, initial encounter for closed fracture; W18.39XA Other fall on same level, initial encounter; Y93.89 Activity, other specified; Z88.3 Allergy status to other anti-infective agents; Z79.01 Long term (current) use of anticoagulants; Z86.73 Personal history of transient ischemic attack (TIA), and cerebral infarction without residual deficits; E11.9 Type 2 diabetes mellitus without complications; I10 Essential (primary) hypertension; I48.91 Unspecified atrial fibrillation
CPT/HCPCS: 96365; 85025; 80048; 36415; 86900; 86850; 86901; 70450; 71250; 72125; 73560; 73552; 73590; 51702; 96375; 99285; 27752; J2704; J3010; J0690; G0390